=== PATIENT | female | born 1970 | race Caucasian/White ===

== ENCOUNTER 2020-03-30 11:37 | Emergency (ER) | payer OTHER ==
[2020-03-30 12:22] LABS: BASOPHILS # (AUTO) 0.1 10^3/uL (0.0-0.1); EOSINOPHILS # (AUTO) 0.6 10^3/uL (0.0-0.7); EOSINOPHILS % (AUTO) 6.1 %; HGB - HEMOGLOBIN 12.7 g/dL (12.0-16.0); LYMPHOCYTES # (AUTO) 2.5 10^3/uL (1.5-3.5); LYMPHOCYTES % (AUTO) 27.4 %; MEAN CORPUSCULAR HGB CONC 33.2 g/dL (32.0-36.0); MEAN CORPUSCULAR VOLUME 90.3 fL (81.0-99.0); MEAN PLATELET VOLUME 9.2 fL (7.9-10.8); MONOCYTES # (AUTO) 0.5 10^3/uL (0.0-1.0); MONOCYTES % (AUTO) 5.5 %; NEUTROPHILS # (AUTO) 5.4 10^3/uL (1.5-6.6); NEUTROPHILS % (AUTO) 59.5 %; PLT - PLATELET COUNT 258 10^3/uL (130-450); RED BLOOD COUNT 4.24 10^6/uL (4.20-5.40); RED CELL DISTRIBUTION WIDTH 13.2 % (12.0-15.0); WHITE BLOOD COUNT 9.1 x10^3/uL (4.8-10.8)
[2020-03-30 12:36] LABS: ALBUMIN 3.9 g/dL (3.2-5.5); ALBUMIN/GLOBULIN RATIO 1.3 (1.0-2.2); BILIRUBIN,TOTAL 0.8 mg/dL (0.2-1.0); CALCIUM 9.1 mg/dL (8.5-10.3); CREATININE 0.8 mg/dL (0.4-1.0)
[2020-03-30 13:00] LABS: BILIRUBIN,URINE NEGATIVE (NEGATIVE); GLUCOSE, URINE (UA) NEGATIVE (NEGATIVE); KETONES,URINE (UA) TRACE mg/dL (NEGATIVE); LEUKOCYTE ESTERASE, URINE SMALL (NEGATIVE); NITRITE,URINE POSITIVE (NEGATIVE); OCCULT BLOOD,URINE LARGE (NEGATIVE); PROTEIN,URINE >=300 mg/dL (NEGATIVE); UROBILINOGEN,URINE 1 (NORMAL) E.U./dL (NORMAL)
[2020-03-30 13:02] LABS: CLARITY,URINE CLOUDY (CLEAR); HCG UR QUAL NEGATIVE
[2020-03-30 13:04] LABS: BACTERIA,URINE Many /HPF (None Seen); RBC,URINE TNTC /HPF (0-5); SQUAMOUS EPITHELIAL CELL,UR NONE SEEN (<= Few)
--- NOTE | 2020-03-30 15:16 | ED Physician Documentation ---
History of Present Illness - Stated complaint Stated Complaint: FEMALE - Chief complaint Chief Complaint: Abd Pain - History obtained from History obtained from: Patient - History of Present Illness Timing: Prior to arrival - Additonal information Additional information: 49-year-old female presents to the emergency department for evaluation of heavy menstrual flow. She reports that her menses started yesterday. She has had some heavy cramping but this morning found that she was fully saturating tampons and pads greater than 3 or 4 an hour. She denies any syncope, chest pain dyspnea or history of heavy bleeding. She reports that she was being seen by an OB about 6 months ago for painful menstrual cycles that was at that time associated with ovarian cysts. She was recommended to have a hysterectomy but because her is deployed and no one is available to help her care for her child she was unable to have this completed. 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 cysts : None HEENT: None Psych: None Musculoskeletal: None Derm: None - Past Surgical History Past Surgical History: Yes General: Cholecystectomy /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 HELPER: section - Present Medications Home Medications: Ambulatory Orders Medication Instructions Recorded Confirmed No Known Home Medications 03/30/20 03/30/20 - Allergies Allergies/Adverse Reactions: Allergies Allergy/AdvReac Type Severity Reaction Status Date / Time No Known Drug Allergies Allergy Verified 03/30/20 11:59 - Social History Does the pt smoke?: No Smoking Status: Never smoker Does the pt drink ETOH?: Yes Does the pt have substance abuse?: No - Immunizations Immunizations are current?: Yes PD ED PE NORMAL - General General: Alert and oriented X 3, No acute distress - Neck Neck: Supple, no meningeal sign - Cardiac Cardiac: RRR, No murmur, Strong equal pulses, Other (no tachycardia) - Respiratory Respiratory: Clear bilaterally - Abdomen Abdomen: Normal bowel sounds, Soft, Non tender, Non distended - Female 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 When cleared of clot and blood small amount of bleeding seen coming from the cervical os. No cervical motion tenderness. No adnexal tenderness.) Results - Vitals Vitals: Vital Signs - 24 hr 03/30/20 03/30/20 03/30/20 11:59 15:31 16:58 Temperature 36.7 C 36.6 C Heart Rate 62 71 72 Respiratory 16 16 16 Rate Blood Pressure 108/68 123/45 L 117/54 L O2 Saturation 98 100 100 Oxygen O2 Source Room air - Labs Labs: Laboratory Tests 03/30/20 03/30/20 03/30/20 12:18 12:18 12:20 WBC 9.1 RBC 4.24 Hgb 12.7 Hct 38.3 MCV 90.3 MCH 30.0 MCHC 33.2 RDW 13.2 Plt Count 258 MPV 9.2 Neut # (Auto) 5.4 Lymph # (Auto) 2.5 [place] # (Auto) 0.5 Eos # (Auto) 0.6 Baso # (Auto) 0.1 Absolute Nucleated RBC 0.00 Nucleated RBC % 0.0 Sodium 139 Potassium 4.1 Chloride 107 Carbon Dioxide 25 Anion Gap 7.0 BUN 16 Creatinine 0.8 Estimated GFR (MDRD) 77 L Glucose 89 Calcium 9.1 Total Bilirubin 0.8 AST 18 ALT 15 Alkaline Phosphatase 81 Total Protein 7.0 Albumin 3.9 Globulin 3.1 Albumin/Globulin Ratio 1.3 Lipase 30 Urine Color RED/BLOODY Urine Clarity CLOUDY Urine pH 5.0 Ur Specific Springer >=1.030 H Urine Protein >=300 H Urine Glucose (UA) NEGATIVE Urine Ketones TRACE Urine Occult Blood LARGE H Urine Nitrite POSITIVE H Urine Bilirubin NEGATIVE Urine Urobilinogen 1 (NORMAL) Ur Leukocyte Esterase SMALL H Urine RBC TNTC H Urine WBC 6-10 H Ur Squamous Epith Cells NONE SEEN Urine Bacteria Many H Ur Microscopic Review INDICATED Urine Culture Comments INDICATED Urine HCG, Qual NEGATIVE - Rads (name of study) pelvic ultrasound Radiology: Final report received (small uterine fibroid measuring 2.3 cm. prior right oophorectomy, scatter follicular cysts of the left ovary) PD MEDICAL DECISION MAKING - ED course Complexity details: reviewed results, re-evaluated patient, considered differential, d/w patient ED course: 49 -year-old female presents to the emergency department with heavy vaginal bleeding over the last 24 hours. She reports that at times she is saturating 4 pads or tampons an hour. Her hemoglobin is normal. She has no tachycardia hypotension dizziness or feelings of being lightheaded. When I did her pelvic exam there was a small to moderate amount of bleeding seen coming from the cervix. An ultrasound does show a fibroid measuring about 2.3 cm. We discussed the findings and patient desires medication to slow the bleeding therefore at this point we have given her 150 mg of Depo-Provera. I discussed that this should slow and limit the bleeding over the next 48 to 72 hours. She will follow closely with her primary care provider and prop [place]. She was advised that if she has worsening symptoms to return immediately to the ER Departure - Departure Disposition: 01 Home, Self Care Clinical Impression: Uterine fibroid Qualifiers: Uterine leiomyoma location: unspecified location Qualified Code(s): D25.9 - Leiomyoma of uterus, unspecified Condition: Stable Record reviewed to determine appropriate education?: Yes Instructions: ED Fibroids Comments: Today you have normal blood counts and elecrtrolytes. The ultrasound shows that you do have a uterine fibroid. Is the most likely cause of your bleeding. Today you were given an injection of Depo-Provera which should help slow your bleeding over the next few days. If you find that you continue to saturate pads and tampons as you have been, you have a racing heart, feel lightheaded or short of breath please return immediately to the ER. It is important that you follow-up closely with your prop and effects designer or director of health education [place]. Uterine fibroids tend to rebleed unless addressed over the long-term.
[2020-03-30 17:00] VITALS: BP 117/54
--- NOTE | 2020-03-30 17:08 | Ultrasound Report ---
PROCEDURE: Pelvic w/Transvaginal INDICATIONS: HEAVY VB, CONCERN FOR FIBROIDS TECHNIQUE: Real-time scanning was performed of the pelvic organs, with image documentation. Additional endovagi nal scanning was necessary due to incomplete visualization of the adnexal and endometrial structures by transabdominal scanning. COMPARISON: None. FINDINGS: Transabdominal scanning: Limited scanning through the kidneys shows no hydronephrosis. No pathologi c free abdominal or pelvic fluid. A left renal cyst is simple measuring up to 2.2 x 2.1 x 1.4 cm. Endovaginal scanning: Uterus: Uterus is normal in size at 5.1 x 6.9 x 11.0 cm, anteverted. The endometrium measures 19.0 mm in combined thickness, heterogeneous without mass or abnormal fluid collection. There is a small midline submucosal low uterine segment fibroid measuring 2.2 x 1.8 x 2.3 cm. Scattered nabothian cyst s are incidentally noted, up to 1.5 cm in diameter. Ovaries: The right ovary is surgically absent, the left ovary measures 3.0 x 2.6 x 4.5 cm with folli cular cysts the largest of which measures up to 1.9 cm. IMPRESSION: Single small uterine fibroid identified measuring only 2.3 cm in maximal dimension. Note is made of a bnormal thickening of the endometrial lining at 19 mm, hyperplastic. No discrete endometrial fluid co llection or solid mass is found. Prior right oophorectomy, scattered follicular cysts at the left ovary. Multiple relatively prominent nabothian cysts are seen at the cervix. Reviewed by: Kapil Lee MD on 03/30/2020 5:06 PM PDT Approved by: Kapil Lee MD on 03/30/2020 5:06 PM PDT Station ID: [id number]
== END 2020-03-30 17:57 | disposition home or self-care (01) ==
LOC: ED 11:37
DX: D25.0 Submucous leiomyoma of uterus (principal); N83.02 Follicular cyst of left ovary; N88.8 Other specified noninflammatory disorders of cervix uteri; Z90.721 Acquired absence of ovaries, unilateral
CPT/HCPCS: 36415; 76830; 76856; 80053; 81001; 81025; 83690; 85025; 87086; 96372; 99284; J1050; 81003

== ENCOUNTER 2020-04-26 06:28 | Day surgery (SDC) | payer OTHER ==
[2020-04-26] MEDS ORDERED: LACTATED RINGERS 1,000 ML IV ONE ×2 (06:33→08:28)
[2020-04-26 06:50] LABS: HCG UR QUAL NEGATIVE
--- NOTE | 2020-04-26 06:59 | ANESTHESIA ---
Pre-Anesthesia VS, & Labs - Diagnosis Abnormal Uterine Bleeding - Procedure Hysteroscopy with Myosure Vital Signs: Temp Pulse Resp BP Pulse Ox 36.6 C 68 16 119/54 L 100 04/26/20 06:44 04/26/20 06:44 04/26/20 06:44 04/26/20 06:44 04/26/20 06:44 Height: 5 ft 2.99 in Weight (kg): 80.1 kg Body Mass Index: 31.3 BMI Classification: Obese - Is Patient ?: No Home Medications and Allergies No Known Home Medications 03/30/20 Allergies/Adverse Reactions: Allergies Allergy/AdvReac Type Severity Reaction Status Date / Time No Known Drug Allergies Allergy Verified 04/26/20 06:57 Anes History & Medical History - Anesthetic History Anesthesia Complications: reports: No previous complications Family history of Anesthesia Complications: Denies Family history of Malignant Hyperthermia: Denies - Medical History Cardiovascular: reports: None Pulmonary: reports: None Gastrointestinal: reports: None Urinary: reports: None Neuro: reports: None Musculoskeletal: reports: None Endocrine/Autoimmune: reports: None Blood Disorders: reports: None Skin: reports: None Smoking Status: Never smoker - Surgical History General: Cholecystectomy Gynecologic: section, Other Exam General: Alert, Oriented x3, Cooperative, No acute distress Dental: WNL Mouth Openin Fingerbreadth Neck Mobility: Normal Mallampati classification: II Respiratory: Lungs clear, Normal breath sounds, No respiratory distress, No accessory muscle use Cardiovascular: Regular rate, Normal S1, Normal S2, No murmurs Abdomen: Normal bowel sounds, Soft, No tenderness, No hepatospenomegaly, No masses Extremities: No clubbing, No cyanosis, No edema, Normal pulses, No tenderness/swelling Neurological: Normal gait, Normal speech, Strength at 5/5 X4 ext, Normal tone, Sensation intact, Cranial nerves 3-12 NL, Reflexes 2+ Mental/Cognitive Status: Alert/Oriented X3, Normal for patient Cognitive Status: Within normal limits Plan Anesthesia Type: General Consent for Procedure(s) Verified and Reviewed: Yes Code Status: Attempt Resuscitation ASA classification: 1-Healthy patient Is this case an emergency?: No
[2020-04-26] MEDS ORDERED: LACTATED RINGERS 1,000 ML IV SCH (07:00)
[2020-04-26] MEDS ORDERED: NALOXONE 0.4 MG/ML VIAL IVP PRN (07:00)
[2020-04-26] MEDS ORDERED: HYDROmorphone 0.5 MG/0.5 ML SYRINGE IVP PRN (07:00)
[2020-04-26] MEDS ORDERED: METOCLOPRAMIDE 10 MG/2 ML VIAL IVP PRN (07:00)
[2020-04-26] MEDS ORDERED: ePHEDrine 50 MG/ML VIAL IVP PRN (07:00)
[2020-04-26] MEDS ORDERED: ONDANSETRON 4 MG/2 ML VIAL IVP PRN ×2 (07:00→08:32)
[2020-04-26] MEDS ORDERED: ATROPINE ABBOJECT 1 MG/10 ML SYRINGE IVP PRN (07:00)
[2020-04-26] MEDS ORDERED: MORPHINE 2 MG/ML CARPUJECT IVP PRN (07:00)
[2020-04-26] MEDS ORDERED: LIDOCAINE 1% 50 ML MDV ONE (07:26)
[2020-04-26] MEDS ORDERED: ACETAMINOPHEN 1,000 MG/100 ML 100 ML IV ONE (07:27)
[2020-04-26] MEDS ORDERED: LIDOCAINE 1% 50 ML MDV IC ONE (07:58)
[2020-04-26] MEDS ORDERED: diphenhydrAMINE 25 MG CAPSULE PO PRN (08:32)
[2020-04-26] MEDS ORDERED: MORPHINE 10 MG/ML VIAL IVP PRN (08:32)
[2020-04-26] MEDS: fentaNYL 100 MCG/2 ML VIAL IVP PRN ×2 (08:38→08:48)
--- NOTE | 2020-04-26 08:48 | OPERATIVE REPORT ---
Operative Report - General Procedure Date: 04/26/20 Planned Procedure: Diagnostic Hysteroscopy, Novasure endometrial ablation Pre-Op Diagnosis: Abnormal uterine bleeding, heavy menstrual bleeding Procedure Performed: Diagnostic Hysteroscopy, D&C, Novasure endometrial ablation Post Op Diagnosis: Abnormal uterine bleeding, heavy menstrual bleeding - Procedure Note Primary Surgeon: Daryn Anesthesia Provider: Ela Anesthesia Technique: General LMA, Local Pathology: Endometrial curettings IV Fluids (mL): 750 (Lactated ringers) Estimated Blood Loss (mL): 10 Urine Output (mL): 100 Indications: 49 year old female A1 using 's vasectomy for contraception, with long history of heavy menses and more recently with prolonged menses. She declined hormonal management and desired surgery with endometrial ablation. An endometrial biopsy was benign. The patient was counseled and consented for the procedure. Findings: Exam under anesthesia: Anteverted uterus with normal size, shape, and contour. No adnexal masses. Intraoperative: Hysteroscopy with polypoid endometrium, normal bilateral tubal ostia. D&C peformed. Uterus sounded to 9.5cm. Cervix measured 5cm. Uterine width measured 4.3cm with Novasure device. Total ablation time 1:06 minutes at power level 106 gan. Post-ablation hysteroscopy with appropriately charred surfaces throughout. Complications: None - Other Other Information/Narrative: The patient was counseled and consented for the procedure. She was taken to the operating room where general LMA anesthesia was obtained without complication. A surgical time-out was performed. The patient was prepped and draped in the usual sterile fashion in yellow-fin stirrups. The bladder was drained with a straight catheter. A bivalve speculum was placed in the vagina. The anterior lip of the cervix was grasped with a single toothed tenaculum. A local p aracervical block using 1% lidocaine was placed at 2, 4, 8, and 10 o'clock positions of the cervix. The uterus was sounded to 9.5cm. The cervix was dilated to #7 Richa dilator. The diagnostic hysteroscope was inserted and the uterine cavity was noted to have polypoid tissue throughout with normal bilateral tubal ostia. The hysteroscope was removed and sharp curettage was performed with a medium sized curette, and the tissue sent for pathology. The cervix and uterine measurements were obtained. The Novasure device was inserted and the uterine width was obtained using adjunct lecturer recommended maneuvers. Endometrial ablation was performed without complication. The Novasure device was removed and the diagnostic hysteroscope was inserted, notable for global charring of endometrium. The hysteroscope was removed. The tenaculum was removed from the cervix and the tenaculum sites were hemostatic with pressure. The speculum was removed from the vagina. All instruments were removed from the vagina. The patient tolerated the procedure well. She was awakened from anesthesia without complication and transferred to PACU in stable condition.
[2020-04-26 09:21] VITALS: BP 105/63
--- NOTE | 2020-04-26 15:45 | ANESTHESIA POST OP EVALUATION ---
Anesthesia Post Eval - Post Anesthesia Eval Vitals: Last Vital Signs Temp 36.7 C 04/26/20 08:50 Pulse 54 L 04/26/20 09:20 Resp 16 04/26/20 09:20 BP 105/63 04/26/20 09:20 Pulse Ox 100 04/26/20 09:20 CV Function Including HR & BP: positive: Stable Pain Control: positive: Satisfactory Nausea & Vomiting: positive: Negative Mental Status: positive: Baseline Respiratory Status: Airway Patent Hydration Status: Satisfactory Anesthesia Complications: positive: None
== END 2020-04-26 06:29 | disposition home or self-care (01) ==
LOC: SDS 06:28
PROVIDERS: ATTEND Obstetrics & Gynecology
PROC: 0UDB7ZZ Extraction of Endometrium, Via Natural or Artificial Opening (ICD-10-PCS; 2020-04-26)
PROC: 0U5B8ZZ Destruction of Endometrium, Via Natural or Artificial Opening Endoscopic (ICD-10-PCS; principal; 2020-04-26 07:30)
DX: N92.0 Excessive and frequent menstruation with regular cycle (principal); N94.6 Dysmenorrhea, unspecified
CPT/HCPCS: 81025

== ENCOUNTER 2021-10-12 13:36 | Outpatient (CLI) | payer OTHER ==
--- NOTE | 2021-10-13 15:53 | Mammography Report ---
BILATERAL DIGITAL SCREENING MAMMOGRAM 3D/2D: 10/12/2021 CLINICAL: Routine screening. Comparison is made to exam dated: 03/01/2018 mammogram. The tissue of both breasts is heterogeneousl y dense. This may lower the sensitivity of mammography. There is a possible new round equal density asymmetry with an obscured and spiculated margin in the l eft breast middle depth lateral region seen on the craniocaudal view only. Finding is seen only on t omography. No other significant masses, calcifications, or other findings are seen in either breast. IMPRESSION: INCOMPLETE: NEEDS ADDITIONAL IMAGING EVALUATION The possible new round equal density asymmetry in the left breast is indeterminate. Additional views with possible ultrasound are recommended. This exam was interpreted at Station ID: [id number]. NOTE: For mammograms, a report in lay terms will be sent to the patient. Approximately 15% of breast malignancies will not be visualized mammographically. In the management of a palpable breast mass, a negative mammogram must not discourage biopsy of a clinically suspicious lesion. Electronically Signed By: Salina castaneda/[email or web address]:10/12/2021 17:12:32 ACR BI-RADS Category 0: Incomplete 3340F PARENCHYMAL PATTERN: (D) - The breast(s) demonstrate(s) heterogeneously dense fibroglandular jona nassar. BI-RADS CATEGORY: (0) - 0 Mammo and [place] [id number] Immediate follow-up LATERALITY: (B)
== END 2021-10-12 13:37 | disposition home or self-care (01) ==
LOC: DI.N 13:36
DX: Z12.31 Encounter for screening mammogram for malignant neoplasm of breast (principal); R92.8 Other abnormal and inconclusive findings on diagnostic imaging of breast